=== PATIENT | male | born 1995 | race Caucasian/White ===

== ENCOUNTER → 2018-02-06 09:54 | Outpatient (CLI) | payer OTHER, SELFPAY ==
--- NOTE | 2018-02-06 | DI.MRI.S_ITS ---
PROCEDURE: MR HIP RT WO CON INDICATIONS: PAIN IN RIGHT HIP TECHNIQUE: Noncontrast coronal T1 spin echo and STIR through the bony pelvis. Coronal and axial T2 fast spin echo with fat saturation, sagittal T1 spin echo, and oblique axial T2 fast spin echo with fat saturation through the hip. COMPARISON: None. FINDINGS: Image quality: Excellent. Bones and joints: Bone marrow of the pelvic ring and proximal femurs show normal signal throughout. No intraosseous lesions or fractures. No avascular necrosis of the femoral heads. The visualized lower lumbar spine appears normally aligned. Tendons and ligaments: The gluteus medius and minimus tendons appear intact, without associated muscle atrophy. The nearby proximal iliotibial band also appears intact. The iliopsoas tendon appears intact, without adjacent bursal fluid collections or evidence for impingement syndrome. The origin of the hamstring tendon is intact at the ischial tuberosity, as well as the associated sacrotuberous ligament. The straight and reflected heads of the rectus femoris muscle origin appear intact, as well as the conjoint tendon. The ligamentum teres appears intact where visualized. Labrum and cartilage: The acetabular labrum appears intact in the absence of intra-articular contrast. Cartilage surface of the femoral head on the right appears of slightly reduced thickness when compared to that on the left. The alpha angle of the femur is within normal limits at less than 55 degrees. Soft tissues: Visualized muscles demonstrate normal bulk and internal signal. Quadratus femoris muscle demonstrates no internal edema to suggest ischiofemoral impingement. The proximal sciatic neurovascular bundle appears normal adjacent to the hamstring tendons. No free pelvic fluid. Bladder wall thickness is normal. Genitourinary structures and bowel loops appear normal where visualized. IMPRESSION: The articular cartilage thickness at the right hip superiorly, laterally, is slightly reduced when compared to that on the left. No edema or joint effusion is associated. This may represent a congenital variant or sequela of prior injury. Otherwise the examination is symmetric and normal. Dictated by: Heron Boothe M.D. on 02/06/2018 at 11:11 Approved by: Heron Boothe M.D. on 02/06/2018 at 11:14
== END ==
PROVIDERS: PCP Family Medicine; Visit Provider Orthopaedic Surgery
DX: M25.551 Pain in right hip (principal)
CPT/HCPCS: 73721